=== PATIENT | female | born 1990 | race Caucasian/White ===

== ENCOUNTER 2023-07-11 09:55 | Day surgery (SDC) | payer SELFPAY ==
[2023-07-10 13:14] VITALS: BMI 24.8
[~2023-07-11 09:55] MED LIST: Bupivacaine 0.25% HCL 30 ML VIAL ONE; EPINEPHrine 1 MG/ML VIAL ONE; Lidocaine 2% 6 ML (Jelly) SYR ONE
[2023-07-11] MEDS ORDERED: Dexamethasone 20 MG/5 ML VIAL ONE (10:33)
[2023-07-11] MEDS ORDERED: Ketorolac Tromethamine 30 MG (1 mL) VIAL ONE (10:33)
[2023-07-11] MEDS ORDERED: fentaNYL 50 mcg/mL 1 mL Vial ONE (10:33)
[2023-07-11] MEDS ORDERED: PROPOFOL 20 ML ONE ×2 (10:33→11:35)
[2023-07-11] MEDS ORDERED: Ondansetron PF 4 MG/2 ML Vial ONE (10:33)
[2023-07-11] MEDS ORDERED: Midazolam HCl 2 mg/2 ml Vial ONE (10:33)
[2023-07-11] MEDS ORDERED: Glycopyrrolate 0.2 MG/ML 5 ML SYRINGE ONE (10:34)
[2023-07-11] MEDS ORDERED: ceFOXitin 1 GM VIAL ONE (10:39)
[2023-07-11] MEDS ORDERED: Dexmedetomidine 200 MCG/2 ML VIAL ONE (10:46)
[2023-07-11] MEDS ORDERED: SUCCINYLCHOLINE/SOD CL,ISO/PF 200 MG/10 ML SYRINGE FS ONE (11:38)
== END 2023-07-11 14:20 | disposition home or self-care (01) ==
LOC: CSHSDC 09:55
PROVIDERS: ATTEND Surgery
PROC: 06BY3ZC Excision of Hemorrhoidal Plexus, Percutaneous Approach (ICD-10-PCS; principal; 2023-07-11)
DX: K64.3 Fourth degree hemorrhoids (principal); Z79.899 Other long term (current) drug therapy; Z90.89 Acquired absence of other organs
CPT/HCPCS: 88304; J0171; J0694; J1100; J1885; J2250; J2405; J2704; J3010; S0020